=== PATIENT | female | born 1960 | race Caucasian/White ===

== ENCOUNTER 2016-07-16 22:22 | Emergency (ER) | payer OTHER ==
[~2016-07-16] VITALS: Ht 160 cm; Wt 68.0 kg
[~2016-07-16 22:22] MED LIST: AMLODIPINE BESYL5 MG PO; ASPIR 8181 MG PO; ATORVASTATIN CA40 MG PO; BAYER CHEWABLE81 MG PO; BENICAR HCT 201 EACH PO; BENICAR40 MG PO; CARAFATE 11 GM/10 M1 PO; CARDIZEM CD120 MG PO; CIPROFLOXACIN500 M1 PO; COLACE100 MG PO; DOCUSATE SODIU100 MG PO; FLAGYL500 MG PO; HYDROCHLOROTHIA25 M2 PO; IMDUR 30 MG TAB30 M1 PO; LOPRESSOR25 PO; LOVASTAT20 PO; MAG-AL PLUS SUS30 ML PO; MILK OF MA2400 MG/10 PO; NORCO 5-325 TA1 EACH PO; NORVASC10 MG PO; NORVASC5 MG PO; NOVOLOG100 UNIT/1 SUBQ; PLAVIX 75 MG TA75 M1 PO; PREDNISONE 20 M20 MG PO; PREDNISONE 5 MG5 M1 PO; PROTONIX40 M1 PO; PROTONIX40 M2 PO; SENNA PO; SIMVASTATIN40 MG PO; TYLENOL325 MG PO; ZESTORETIC 20-1 EAC1 PO
[2016-07-16 23:20] LABS: ABSOLUTE NEUTROPHILS 2.7 thou/uL (1.4-8.2); BASOPHILS 1.4 % (0.0-2.0); HEMATOCRIT 38.1 % (37.0-47.0); LYMPHOCYTES 32.7 % (24.0-44.0); MCH 29.8 pg (26.0-34.0); MCHC 34.1 g/dL (28.0-37.0); MCV 87.3 fL (80.0-100.0); MONOCYTES 9.5 % (1.0-8.0); PLATELET COUNT 214 thou/uL (150-400); POLYS 51.4 % (36.0-66.0); RBC 4.37 mil/uL (4.20-5.00); RDW 12.9 % (10.5-14.5); WBC 5.2 thou/uL (4.0-11.0)
[2016-07-16 23:26] LABS: MANUAL DIFF NO
[2016-07-16 23:33] LABS: CALCIUM 9.2 mg/dL (8.5-10.1); CREATININE 0.8 mg/dL (0.6-1.0)
[2016-07-16 23:38] LABS: PROTIME 10.8 Seconds (9.3-11.4)
[2016-07-17] MEDS ORDERED: SENNA8.6 MG PO
[2016-07-17] MEDS ORDERED: KEFLEX500 MG PO (00:01)
[2016-07-17] MEDS ORDERED: MOBIC15 MG PO ×2 (00:02)
[2016-07-17] MEDS ORDERED: NORCO 5-325 TA1 EACH PO (00:06)
== END 2016-07-17 01:00 | disposition home or self-care (01) ==
LOC: ER 22:22
PROVIDERS: Physician Assistant
DX: L03.116 Cellulitis of left lower limb (principal); M79.605 Pain in left leg; E78.5 Hyperlipidemia, unspecified; I10 Essential (primary) hypertension; E66.9 Obesity, unspecified; M19.90 Unspecified osteoarthritis, unspecified site; I25.2 Old myocardial infarction; Z86.73 Personal history of transient ischemic attack (TIA), and cerebral infarction without residual deficits

== ENCOUNTER 2017-09-12 18:16 | Emergency (ER) | payer OTHER ==
[~2017-09-12] VITALS: Ht 162.6 cm; Wt 74.8 kg
[~2017-09-12 18:16] MED LIST changes: +KEFLEX500 MG PO; +MOBIC15 MG PO; +SENNA8.6 MG PO
[2017-09-12 18:43] LABS: URINE BILIRUBIN NEGATIVE (Negative); URINE BLOOD TRACE (Negative); URINE CLARITY CLOUDY; URINE COLOR YELLOW; URINE GLUCOSE-RANDOM* NEGATIVE (Negative); URINE KETONES NEGATIVE (Negative); URINE NITRITE-REFLEX NEGATIVE (Negative); URINE PROTEIN (DIPSTICK) NEGATIVE (Negative); URINE SPECIFIC GRAVITY 1.015 (1.005-1.035)
[2017-09-12 18:48] LABS: URINE LEUKOCYTES-REFLEX 3+ (Negative)
[2017-09-12 19:01] LABS: CASTS None Seen /LPF (None Seen); SQUAMOUS 4-10 Moderate /LPF (0-3)
[2017-09-12 19:02] LABS: CRYSTALS None Seen /LPF (None Seen); URINE RBC 0-2 Rare /HPF (0-2); URINE WBC-REFLEX 6-15 Few /HPF (0-5)
[2017-09-12 19:14] LABS: ABSOLUTE NEUTROPHILS 6.7 thou/uL (1.4-8.2); BASOPHILS 0.7 % (0.0-2.0); EOSINOPHILS 0.7 % (0.0-3.0); HEMATOCRIT 39.6 % (37.0-47.0); HEMOGLOBIN 13.4 gm/dL (12.0-15.0); LYMPHOCYTES 13.1 % (24.0-44.0); MCH 29.2 pg (26.0-34.0); MCHC 33.9 g/dL (28.0-37.0); MONOCYTES 7.2 % (1.0-8.0); PLATELET COUNT 218 thou/uL (150-400); POLYS 78.3 % (36.0-66.0); RDW 12.4 % (10.5-14.5); WBC 8.6 thou/uL (4.0-11.0)
[2017-09-12] MEDS ORDERED: CELEBREX 200 M200 M1 PO (19:17)
[2017-09-12 19:18] LABS: CALCIUM 9.1 mg/dL (8.5-10.1); CREATININE 1.1 mg/dL (0.6-1.0); POTASSIUM 3.4 mmol/L (3.5-5.1)
[2017-09-12 19:24] LABS: ALBUMIN 4.1 g/dL (3.4-5.0); TOTAL BILIRUBIN 0.5 mg/dL (<0.1-1.0); TOTAL PROTEIN 7.5 g/dL (6.4-8.2)
[2017-09-12 20:01] LABS: LARGE PLATELETS RARE
[2017-09-12] MEDS ORDERED: CIPRO500 MG PO (22:05)
[2017-09-12] MEDS ORDERED: FLAGYL500 MG PO (22:05)
[2017-09-12] MEDS ORDERED: CARAFATE 1 GM TA1 G1 PO (22:07)
[2017-09-12] MEDS ORDERED: HEARTBURN RELIE20 MG PO (22:07)
[2017-09-12] MEDS ORDERED: NORCO 5-325 TA1 EACH PO (22:10)
== END 2017-09-12 22:16 | disposition home or self-care (01) ==
LOC: ER 18:16
PROVIDERS: Physician Assistant
DX: K57.92 Diverticulitis of intestine, part unspecified, without perforation or abscess without bleeding (principal); N39.0 Urinary tract infection, site not specified; N17.9 Acute kidney failure, unspecified; E87.6 Hypokalemia; R11.0 Nausea; I10 Essential (primary) hypertension; E78.5 Hyperlipidemia, unspecified; I73.9 Peripheral vascular disease, unspecified; E66.9 Obesity, unspecified; I70.90 Unspecified atherosclerosis; Z68.28 Body mass index [BMI] 28.0-28.9, adult; Z86.73 Personal history of transient ischemic attack (TIA), and cerebral infarction without residual deficits